=== PATIENT | female | born 1930 | race Caucasian/White ===

== ENCOUNTER 2016-10-18 16:43 | Inpatient (IN) | payer MEDICARE, BC ==
[~2016-10-18] VITALS: Ht 165.1 cm; Wt 69.6 kg
[~2016-10-18 16:43] MED LIST changes: -METO-429 PO; -[UNRECOGNIZED DRUG - CODE] PO
[2016-10-18] MEDS ORDERED: MAGNESIUM HYDROXIDE 30ML CUP PO PRN (17:00)
[2016-10-18] MEDS ORDERED: SENNA/DOCUSATE NA (8.6MG/50MG) TAB PO PRN ×2 (17:00→19:00)
[2016-10-18] MEDS ORDERED: ZOLPIDEM 5 MG TAB PO PRN ×2 (17:00→19:00)
[2016-10-18] MEDS ORDERED: DIPHENHYDRAMINE 50 MG INJ IM PRN (17:00)
[2016-10-18] MEDS ORDERED: BISACODYL 10 MG SUPP PR PRN (17:00)
--- NOTE | 2016-10-18 17:18 | HP ---
Date/Time of Note Date/Time of Note DATE: 10/18/16 TIME: 17:04 Assessment/Plan VTE Prophylaxis VTE Prophylaxis Intervention: ambulation, other (Aspirin 81 mg) Assessment/Plan Assessment/Plan * Inpatient orders placed * Inpatient PT recommended * Patient will be followed up by internal medicine/Dr. Connelly * Will continue to monitor patient. HPI/ROS Admit Date/Time Admit Date/Time 10/18/2016 Hx of Present Illness 86-year-old female direct admit to the hospital on 10/18/2016 status post traumatic fall yesterday. Dr. Mathews was notified overnight regarding traumatic fall, and instructions to present to the emergency room were given to the patient. Patient did not show up to emergency room. Dr. Ahumada was notified as well. Patient showed up in outpatient clinic today. X-rays were performed of the hip and knee which were negative for obvious fracture. Patient is a mobile with intractable pain to the right hip and knee as well as lower extremity. Denies any altered mental state. Denies any chest pain/ tightness. Continues with ongoing severe pain to the right hip and knee. Consult between Dr. Mathews and Dr. Connelly was had and it was agreed that patient needs to be admitted into the hospital for ongoing inpatient care with likelihood of discharge to halfway facility. Patient currently lives alone with no assistance. PMH/Family/Social Past Medical History Please refer to patient chart for past medical history and surgical history. Exam/Review of Systems Vital Signs Vitals Blood pressure on exam was 127/56, temperature is 98.8, pulse was 88, respiratory rate was 12, height was 5 foot 5 inches, weight is 150 pounds Exam Exam Tenderness to palpation to the right hip and knee. Unable to weight-bear independently. Patient remains seated in wheelchair. With passive range of motion she has discomfort with flexion of the hip and knee. Denies any pain to the calf. Negative Homans sign. Normal sensory examination to light touch. 4- /5 weakness to the right hip and knee Constitutional: alert, oriented GAGAN FERNANDEZ PA-C Oct 18, 2016 17:15
[2016-10-18 18:04] VITALS: BP 142/63; PULSE 79; RESP 16
[2016-10-18 18:22] VITALS: Ht 165.1 cm; Wt 69.6 kg
[2016-10-18] MEDS ORDERED: ONDANSETRON 4 MG INJ IV PRN (19:00)
[2016-10-18] MEDS ORDERED: HYDROmorphONE 1 MG/ML SYG IV PRN (19:00)
[2016-10-18] MEDS ORDERED: OXYCODONE/ACETAMINOPHEN (5/325) TAB PO PRN (19:00)
[2016-10-18] MEDS ORDERED: [UNRECOGNIZED DRUG - CODE] PO (19:25)
[2016-10-18] MEDS ORDERED: OMEP20CA16 PO (19:28)
[2016-10-18] MEDS ORDERED: DEXTROSE 5%-0.9% NACL 1,000 ML IV SCH (20:00)
[2016-10-18 20:15] VITALS: BP 145/65; RESP 18
[2016-10-18] MEDS: NAPROXEN 250 MG TAB PO SCH (20:42)
[2016-10-18] MEDS: ATORVASTATIN 20 MG TAB PO SCH (20:42)
[2016-10-18] MEDS ORDERED: NACL 0.9% 3 ML SYG IV SCH (21:00)
[2016-10-19 02:18] VITALS: BP 159/71; RESP 17
[2016-10-19 03:14] VITALS: BP 132/62; PULSE 88; RESP 18
[2016-10-19] MEDS: PANTOPRAZOLE (EC) 40 MG TAB PO SCH (05:32)
[2016-10-19 06:21] LABS: ADD SCAN DIFF NO
[2016-10-19 06:57] LABS: CALCIUM 9.1 mg/dl (8.4-10.2); CREATININE 1.05 mg/dl (0.44-1.00); POTASSIUM 3.7 mmol/L (3.5-5.1)
[2016-10-19 07:03] LABS: ABNORMAL IP MESSAGE 1; BASOPHIL # 0.2 10^3/ul (0.0-0.1); EOSINOPHILS # 0.6 10^3/ul (0.0-0.5); EOSINOPHILS % 3.9 % (0.0-7.0); HEMATOCRIT 28.5 % (37.0-47.0); HEMOGLOBIN 8.7 g/dl (12.0-16.0); LYMPHOCYTES # 2.2 10^3/ul (0.8-2.9); LYMPHOCYTES % 14.4 % (15.0-51.0); MEAN CORPUSCULAR HEMOGLOBIN 21.4 pg (29.0-33.0); MEAN CORPUSCULAR HGB CONC 30.5 g/dl (32.0-37.0); MEAN PLATELET VOLUME 10.9 fl (7.4-10.4); MONOCYTE # 1.6 10^3/ul (0.3-0.9); MONOCYTES % 10.3 % (0.0-11.0); NEUTROPHIL # 10.9 10^3/ul (1.6-7.5); NEUTROPHILS % 69.9 % (39.0-77.0); PLATELET COUNT 489 10^3/UL (140-415); RED BLOOD COUNT 4.07 10^6/ul (4.20-5.40); RED CELL DISTRIBUTION WIDTH 22.1 % (11.5-14.5); WHITE BLOOD COUNT 15.5 10^3/ul (4.8-10.8)
[2016-10-19 07:40] VITALS: BP 146/76; RESP 18
--- NOTE | 2016-10-19 07:57 | PN ---
Date/Time of Note Date/Time of Note DATE: 10/19/16 TIME: 07:52 Assessment/Plan VTE Prophylaxis VTE Prophylaxis Intervention: ambulation, other (Aspirin 81 mg) Lines/Catheters IV Catheter Type (from Nrs): Saline Lock Assessment/Plan Assessment/Plan * Continued monitoring by internal medicine * CT scan with metal suppression to the right knee ordered for later today as Dr. Mathews feels that there may be loose component in regards to tibial component status post total knee arthroplasty after fall. * Pain medication as needed * [facility] is cleared by orthopedics and internal medicine. Subjective 24 Hr Interval Summary Free Text/Dictation 86-year-old female who was admitted yesterday (10/18/2016) after experiencing fall injuring the right hip and right knee. She is status post right total hip and right total knee arthroplasty. Continues with ongoing pain. Unable to weight-bear independently. Since being admitted yesterday, she states that pain has been minimal while she has been at rest. Denies any issues since being admitted. Constitutional: no complaints Exam/Review of Systems Vital Signs Vitals Vital Signs Date Time Temp Pulse Resp B/P Pulse Ox O2 Delivery O2 Flow Rate FiO2 10/19/16 03:14 88 18 132/62 98 Room Air 10/19/16 02:18 97.5 Intake and Output 10/18/16 10/18/16 10/19/16 15:00 23:00 07:00 Intake Total 360 ml Balance 360 ml Exam * Bruising to the middle third of the lateral thigh on the right side. * Limited range of motion to the hip and knee on exam today. No significant discomfort on exam. * Normal sensory examination to light touch. * Leg remains elevated being supported by pillows which helps with pain relief. * 2+ pedal pulses. Results Result Diagram: 10/19/16 0609 10/19/16 0609 Results 24 hrs Laboratory Tests Test 10/19/16 06:09 White Blood Count 15.5 H Red Blood Count 4.07 #L Hemoglobin 8.7 L Hematocrit 28.5 L Mean Corpuscular Volume 70.0 L Mean Corpuscular Hemoglobin 21.4 L Mean Corpuscular Hemoglobin Concent 30.5 L Red Cell Distribution Width 22.1 #H Platelet Count 489 H Mean Platelet Volume 10.9 #H Neutrophils % 69.9 Lymphocytes % 14.4 L Monocytes % 10.3 Eosinophils % 3.9 Basophils % 1.0 Neutrophils # 10.9 H Lymphocytes # 2.2 Monocytes # 1.6 H Eosinophils # 0.6 H Basophils # 0.2 H Nucleated Red Blood Cells # 0.0 Sodium Level 136 Potassium Level 3.7 Chloride Level 94 L Carbon Dioxide Level 30 Anion Gap 16 Blood Urea Nitrogen 23 H Creatinine 1.05 H Glucose Level 95 Calcium Level 9.1 Medications Medications Current Medications Zolpidem Tartrate (Ambien) 5 mg HS PRN PO INSOMNIA; Start 10/18/16 at 17:00 Ondansetron HCl (Zofran Inj) 4 mg Q4H PRN IV NAUSEA AND/OR VOMITING; Start at 17:00 Simethicone (Mylicon) 80 mg TID PRN PO DISTENSION/GAS/BLOATING; Start 10/18/16 at 17:00 Senna/Docusate Sodium (Senokot-S) 2 tab BID PRN PO CONSTIPATION; Start at 17:00 Magnesium Hydroxide (Milk Of Mag) 30 ml HS PRN PO CONSTIPATION; Start 10/18/16 at 17:00 Bisacodyl (Dulcolax Supp) 10 mg DAILY PRN [place] CONSTIPATION; Start 10/18/16 at 17 :00 Diphenhydramine HCl (Benadryl) 25 mg Q4H PRN IM ITCHING OR RASH; Start at 17:00 Amlodipine Besylate (Norvasc) 5 mg DAILY PO ; Start 10/19/16 at 09:00 Aspirin (Aspirin) 81 mg DAILY PO ; Start 10/19/16 at 09:00 Atorvastatin Calcium (Lipitor) 20 mg QHS PO Last administered on 10/18/16t 20: 42; Admin Dose 20 MG; Start 10/18/16 at 21:00 Furosemide (Lasix) 20 mg DAILY PO ; Start 10/19/16 at 09:00 Raloxifene HCl (Evista) 60 mg DAILY PO ; Start 10/19/16 at 09:00 Senna/Docusate Sodium (Senokot-S) 2 tab BID PRN PO CONSTIPATION; Start at 19:00 Spironolactone (Aldactone) 25 mg DAILY PO ; Start 10/19/16 at 09:00 Zolpidem Tartrate (Ambien) 5 mg HS PRN PO INSOMNIA; Start 10/18/16 at 19:00 Pantoprazole (Protonix Tab) 40 mg DAILY@06 PO Last administered on 10/19/16 05 :32; Admin Dose 40 MG; Start 10/19/16 at 06:00 Oxycodone/ Acetaminophen (Percocet (5/ 325)) 1 tab Q4H PRN PO PAIN; Start 10/18 at 19:00 Hydromorphone HCl (Dilaudid) 0.5 mg Q4H PRN IV BREAKTHROUGH PAIN; Start at 19:00 Ondansetron HCl (Zofran Inj) 4 mg Q4H PRN IV NAUSEA AND/OR VOMITING; Start at 19:00 Naproxen (Naprosyn) 250 mg BID PO Last administered on 10/18/16 20:42; Admin Dose 250 MG; Start 10/18/16 at 21:00 GAGAN FERNANDEZ PA-C Oct 19, 2016 07:56
[2016-10-19] MEDS ORDERED: SPIRONOLACTONE 25 MG TAB PO SCH (09:00)
[2016-10-19] MEDS ORDERED: RALOXIFENE 60 MG TAB PO SCH (09:00)
[2016-10-19] MEDS: AMLODIPINE 5 MG TAB PO SCH (09:06)
[2016-10-19] MEDS: ASPIRIN 81 MG TAB PO SCH (09:07)
[2016-10-19] MEDS: NAPROXEN 250 MG TAB PO SCH ×2 (09:07→20:38)
[2016-10-19] MEDS: FUROSEMIDE 20 MG TAB PO SCH (09:07)
[2016-10-19] MEDS ORDERED: METO-429 PO (09:20)
--- NOTE | 2016-10-19 09:55 | PDOCDIS ---
Discharge Instructions DIAGNOSIS Discharge Diagnosis Status post fall with right hip and knee soft tissue injury. CONDITION Patient Condition: Stable HOME CARE INSTRUCTIONS: Diet Instructions: RegularSpecial Diet: regular ACTIVITY: Activity Restrictions: Slowly Increase Activity Rest between Activity Avoid heavy lifting No Sexual Activity Do not Drive Do not operate Machinery Do not operate Power Tool Avoid Heavy Housework Keep Limb Elevated (While at rest and use ice modalities.) Weight Bearing (Weightbearing as tolerated. May use front wheeled walker.) Bathing Restrictions: Shower FOLLOW UP/APPOINTMENTS Follow-up Plan Follow-up in outpatient office within the first 1-2 weeks from discharge for repeat evaluation GAGAN FERNANDEZ PA-C Oct 19, 2016 09:54
[2016-10-19 10:15] VITALS: BP 149/71; RESP 18
[2016-10-19 14:25] VITALS: BP 134/62; RESP 16
--- NOTE | 2016-10-19 16:19 | PN ---
Date/Time of Note Date/Time of Note DATE: 10/19/16 TIME: 16:12 Assessment/Plan VTE Prophylaxis VTE Prophylaxis Intervention: contraindicated VTE Contraindication Reason: bleeding (rt thigh, has scds) Lines/Catheters IV Catheter Type (from Nrsg): Saline Lock Subjective 24 Hr Interval Summary Free Text/Dictation rt leg pain and weakness following a fall at home 7 plus days ago. has a huge thigh hematoma but fortunately no fracture seen. unable to amb independently, lives alone. for aru evaluation will transfer if accepted, otherwise e[facility] placement---[facility]-- anemia secondary to hematoma, background history primary thrombocytosis, hgb is 8.7 will follow and try to avoid transfusion hypertension under control osteoporosis has received prolia rx in past, no need for serm other issues hyperlipidemia, prior femoral fracture all stable alert lungs clear, heart rate regular abd soft right leg with large palp hematoma ant thigh, mult bruises, healing small lac over rt eye Musculoskeletal: bone/joint pain Exam/Review of Systems Vital Signs Vitals Vital Signs Date Time Temp Pulse Resp B/P Pulse Ox O2 Delivery O2 Flow Rate FiO2 10/19/16 14:25 98.1 79 16 134/62 95 10/19/16 03:14 Room Air Intake and Output 10/18/16 10/18/16 10/19/16 14:59 22:59 06:59 Intake Total 360 ml Balance 360 ml Results Result Diagram: 10/19/16 0609 10/19/16 0609 Results 24 hrs Laboratory Tests Test 10/19/16 06:09 White Blood Count 15.5 H Red Blood Count 4.07 #L Hemoglobin 8.7 L Hematocrit 28.5 L Mean Corpuscular Volume 70.0 L Mean Corpuscular Hemoglobin 21.4 L Mean Corpuscular Hemoglobin Concent 30.5 L Red Cell Distribution Width 22.1 #H Platelet Count 489 H Mean Platelet Volume 10.9 #H Neutrophils % 69.9 Lymphocytes % 14.4 L Monocytes % 10.3 Eosinophils % 3.9 Basophils % 1.0 Neutrophils # 10.9 H Lymphocytes # 2.2 Monocytes # 1.6 H Eosinophils # 0.6 H Basophils # 0.2 H Nucleated Red Blood Cells # 0.0 Sodium Level 136 Potassium Level 3.7 Chloride Level 94 L Carbon Dioxide Level 30 Anion Gap 16 Blood Urea Nitrogen 23 H Creatinine 1.05 H Glucose Level 95 Calcium Level 9.1 Medications Medications Current Medications Zolpidem Tartrate (Ambien) 5 mg HS PRN PO INSOMNIA; Start 10/18/16 at 17:00 Ondansetron HCl (Zofran Inj) 4 mg Q4H PRN IV NAUSEA AND/OR VOMITING; Start at 17:00 Simethicone (Mylicon) 80 mg TID PRN PO DISTENSION/GAS/BLOATING; Start 10/18/16 at 17:00 Senna/Docusate Sodium (Senokot-S) 2 tab BID PRN PO CONSTIPATION; Start at 17:00 Magnesium Hydroxide (Milk Of Mag) 30 ml HS PRN PO CONSTIPATION; Start 10/18/16 at 17:00 Bisacodyl (Dulcolax Supp) 10 mg DAILY PRN [place] CONSTIPATION; Start 10/18/16 at 17 :00 Diphenhydramine HCl (Benadryl) 25 mg Q4H PRN IM ITCHING OR RASH; Start at 17:00 Amlodipine Besylate (Norvasc) 5 mg DAILY PO Last administered on 10/19/16 09: 06; Admin Dose 5 MG; Start 10/19/16 at 09:00 Aspirin (Aspirin) 81 mg DAILY PO Last administered on 10/19/16 09:07; Admin Dose 81 MG; Start 10/19/16 at 09:00 Atorvastatin Calcium (Lipitor) 20 mg QHS PO Last administered on 10/18/16 20: 42; Admin Dose 20 MG; Start 10/18/16 at 21:00 Furosemide (Lasix) 20 mg DAILY PO Last administered on 10/19/16 09:07; Admin Dose 20 MG; Start 10/19/16 at 09:00 Senna/Docusate Sodium (Senokot-S) 2 tab BID PRN PO CONSTIPATION; Start at 19:00 Zolpidem Tartrate (Ambien) 5 mg HS PRN PO INSOMNIA; Start 10/18/16 at 19:00 Pantoprazole (Protonix Tab) 40 mg DAILY@06 PO Last administered on 10/19/16 05 :32; Admin Dose 40 MG; Start 10/19/16 at 06:00 Oxycodone/ Acetaminophen (Percocet (5/ 325)) 1 tab Q4H PRN PO PAIN; Start 10/18 at 19:00 Hydromorphone HCl (Dilaudid) 0.5 mg Q4H PRN IV BREAKTHROUGH PAIN; Start at 19:00 Ondansetron HCl (Zofran Inj) 4 mg Q4H PRN IV NAUSEA AND/OR VOMITING; Start at 19:00 Naproxen (Naprosyn) 250 mg BID PO Last administered on 10/19/16t 09:07; Admin Dose 250 MG; Start 10/18/16 at 21:00 Spironolactone (Aldactone) 25 mg QHS PO ; Start 10/19/16 at 21:00 Metoprolol Succinate (Toprol Xl) 100 mg DAILY PO ; Start 10/20/16 at 09:00 Miscellaneous Information Patients own medicat... BID@ XX ; Start 10/19/16 at 16:00 SINTIA TOBIN MD Oct 19, 2016 16:19
[2016-10-19] MEDS ORDERED: ONDANSETRON 4 MG INJ IV PRN (17:00)
[2016-10-19 20:00] VITALS: BP 153/71; RESP 20
[2016-10-19] MEDS: SPIRONOLACTONE 25 MG TAB PO SCH (20:38)
[2016-10-19] MEDS: ATORVASTATIN 20 MG TAB PO SCH (20:38)
--- NOTE | 2016-10-20 04:17 | RADRPT ---
PROCEDURE: Noncontrast CT examination of the right lower extremity. CLINICAL INDICATION: Right knee pain and right knee arthroplasty, with suspected loose tibial tray TECHNIQUE: Noncontrast CT examination was obtained of the right lower extremity, with attention to the right knee. Axial, sagittal and coronal reformatted images are available for interpretation. CTDI: 54.47 and DLP: 1820.76. COMPARISON: CT examination of the right knee dated 07/05/2015. FINDINGS: Right knee arthroplasty with patellar resurfacing is again seen. There is no CT evidence of tibial tray loosening, given somewhat limited evaluation secondary to metallic artifact. Anatomic alignment of the tibial tray is similar in appearance to prior examination dated 07/05/2015. A nuclear medici ne bone scan may be of further use. Since the last examination there is evident healing at the fracture of the distal femoral metaphysis , with new retrograde intramedullary kathi fixation in the partially visualized distal femur. There is no evident hardware complication. There is no acute fracture or dislocation. There is a new heterogeneous region of hemorrhage versus mass likely within the lateral distal rectu s femoris, measuring 11 cm in the craniocaudad plane (extending off the superior margin of the image s) and 48 x 33 mm in the axial plane. Differential considerations include hemorrhage secondary to a new soft tissue injury since examination dated 07/05/2015. If there is concern for a soft tissue neoplasm recommend IV contrast enhanced MRI examination for fu rther evaluation. 12 mm likely abscess in the lateral soft tissues of the distal left thigh at the level of interferen ce screw placement, presumably post surgical. This is new over the interval There increased changes of fatty atrophy in the musculature of the distal left fine comparison is ma de to examination dated 07/05/2015. IMPRESSION: 1. No evident loosening of the tibial tray, given limited sensitivity of this examination secondary to metallic artifact. 2. Nevertheless, there is no evident change in anatomic alignment at the tibial tray when compariso n is made to the examination dated 07/05/2015. 3. If there is strong persistent concern for tibial tray loosening A nuclear medicine bone scan may be of further use. 4. Right knee arthroplasty with patellar resurfacing and retrograde IM kathi fixator in the distal ri ght femur are without evident hardware complication. 5. New large hemorrhagic collection in the lateral aspect of the distal right thigh, perhaps in the rectus femoris. 6. If there is concern for neoplasm recommend IV contrast enhanced MRI for further evaluation. 7. New 12 mm likely abscess in the lateral soft tissues of the distal right thigh at the level of i nterference screw placement, presumably postsurgical RPTAT: [facility] Physician Efraín Date Time Electronically viewed and signed by Physician Efraní on 10/20/2016 04:16 RS/
[2016-10-20 04:20] VITALS: BP 139/77; RESP 18
[2016-10-20 05:55] LABS: ABNORMAL IP MESSAGE 1; BASOPHIL # 0.2 10^3/ul (0.0-0.1); BASOPHILS % 1.4 % (0.0-2.0); EOSINOPHILS # 0.5 10^3/ul (0.0-0.5); EOSINOPHILS % 3.3 % (0.0-7.0); HEMATOCRIT 31.2 % (37.0-47.0); HEMOGLOBIN 9.4 g/dl (12.0-16.0); LYMPHOCYTES # 2.3 10^3/ul (0.8-2.9); LYMPHOCYTES % 15.3 % (15.0-51.0); MEAN CORPUSCULAR HEMOGLOBIN 21.4 pg (29.0-33.0); MEAN CORPUSCULAR HGB CONC 30.1 g/dl (32.0-37.0); MEAN CORPUSCULAR VOLUME 71.1 fl (82.0-101.0); MEAN PLATELET VOLUME 11.2 fl (7.4-10.4); MONOCYTE # 1.4 10^3/ul (0.3-0.9); MONOCYTES % 9.3 % (0.0-11.0); NEUTROPHIL # 10.7 10^3/ul (1.6-7.5); PLATELET COUNT 507 10^3/UL (140-415); RED BLOOD COUNT 4.39 10^6/ul (4.20-5.40); RED CELL DISTRIBUTION WIDTH 22.7 % (11.5-14.5); WHITE BLOOD COUNT 15.3 10^3/ul (4.8-10.8)
[2016-10-20 06:33] LABS: POSITIVE DIFF @See below
[2016-10-20 06:36] LABS: CALCIUM 9.5 mg/dl (8.4-10.2); CREATININE 0.9 mg/dl (0.44-1.00); POTASSIUM 3.9 mmol/L (3.5-5.1)
[2016-10-20] MEDS: PANTOPRAZOLE (EC) 40 MG TAB PO SCH (06:45)
[2016-10-20 07:45] VITALS: BP 137/75; RESP 16
[2016-10-20] MEDS: NAPROXEN 250 MG TAB PO SCH ×2 (08:18→20:35)
[2016-10-20] MEDS: ASPIRIN 81 MG TAB PO SCH (08:19)
[2016-10-20] MEDS: AMLODIPINE 5 MG TAB PO SCH (08:19)
[2016-10-20] MEDS: METOPROLOL (XL) 100 MG TAB PO SCH (08:20)
[2016-10-20] MEDS: FUROSEMIDE 20 MG TAB PO SCH (08:21)
--- NOTE | 2016-10-20 10:06 | HP ---
DATE OF ADMISSION: 10/18/2016 CHIEF COMPLAINT: Severe right leg pain and immobility. HISTORY OF PRESENT ILLNESS: This 86-year-old woman is followed by me for hypertension, osteoporosis, essential thrombocytosis. The patient suffered a femoral fracture in about May or May of 2012. Required residential ECF stay after it was rodded. Has done fairly well at home. She does live by herself. She fell about a week or 10 days ago, suffering pain in her right leg. She was unable to really bear weight or walk on it. She did not want to come into the emergency or the hospital. Ultimately went to see . X-rays in the office were unremarkable, but she was clearly immobile and had a big hematoma on her right thigh. The patient was admitted to the hospital last p.m. Her hemoglobin is 8.7. Platelet count is in the 400,000 range. Otherwise she offers no particular complaints. PAST MEDICAL HISTORY: Patient had a TIA many years ago, hypertension, osteoporosis, hyperlipidemia, gastrointestinal reflux disease, history of headaches, as well as total hip and total knee replacements on the right, as well as a right femoral fracture kathi. She has had a hysterectomy, ectopic , and tonsillectomy. ALLERGIES: THERE ARE NO ALLERGIES. FAMILY HISTORY: Parents are . She is 1 of sib-ship of 5. She is a , 1 son living and well. Nonsmoker, no alcohol. Retired nurse. REVIEW OF SYSTEMS: HEENT: Not complaining of headaches or eye problems. Does wear glasses. She had a small laceration over the right eye, which she put a Bandaid over, and it is not bothering her. She has somewhat poor hearing. CARDIOPULMONARY: Says she is not short of breath or having chest pain currently. GASTROINTESTINAL: Asymptomatic. GENITOURINARY: She is continent, needs a bedpan. MEDICATIONS: 1. Patient in the past has been on Evista. It is not clear if she still is. 2. She has received Prolea for osteoporosis. 3. Aldactazide. 4. Toprol. 5. Lasix. 6. Lipitor. 7. She has taken Arthrotec for pain. PHYSICAL EXAMINATION: VITAL SIGNS: Blood pressure is 130/60, 36 hours. All are all in the 90s. She is afebrile. Heart rates are in the 70s and regular. GENERAL: This is a very pleasant, alert 86-year-old. Somewhat overweight, lying in bed. HEENT: Pupils are round and reactive. Extraocular muscles are intact. A small laceration lateral to the left eye is healing, related to her fall. Mouth is unremarkable. NECK: Supple. No bruits. CHEST: Clear. Heart tones regular. No breast mass appreciated lying flat in bed. ABDOMEN: Obese. EXTREMITIES: No clubbing, cyanosis, or edema. Good peripheral pulses. She has degenerative changes of the hands. The right thigh is markedly bruised, as is the leg. There is a large, hand- size hematoma overlying the anterior thigh, slightly tender. She can raise her leg in the lying position. NEUROLOGIC: Neurologically intact. INITIAL IMPRESSION: 1. Fall with large hematoma, right lower extremity, with poor mobility. No evidence of further fracture. 2. Hypertension. 3. Essential thrombocytosis. 4. Anemia, acute, secondary to intramuscular bleeding. 5. Osteoporosis. 6. Multiple orthopedic procedures including right hip, right knee, and right femoral surgeries. DISCUSSION: At this point the patient is stable. Conservative care, physical therapy, and occupational therapy have been ordered. ARU consultation has been ordered. Failing that, acute care facility (ACF), possibly [facility], should be entertained as she is really not safe at this point to be at home by herself. Dictated By: Manuel Phillips MD /juan/nick /Document#: [id number]
--- NOTE | 2016-10-20 10:34 | PN ---
Date/Time of Note Date/Time of Note DATE: 10/20/16 TIME: 10:32 Assessment/Plan Lines/Catheters IV Catheter Type (from Nrsg): Saline Lock Assessment/Plan Assessment/Plan Stable -pain meds as needed -OOB with PT using FWW as tolerated -internal medicine to continue to monitor -discharge planning -stable for transfer to ARU or SNF from an ortho standpoint Subjective 24 Hr Interval Summary No acute overnight events. VSS. Ambulation is progressing. CT showed no evidence of subtle fracture or hardware loosening. Exam/Review of Systems Vital Signs Vitals Vital Signs Date Time Temp Pulse Resp B/P Pulse Ox O2 Delivery O2 Flow Rate FiO2 10/20/16 04:20 97.5 77 18 139/77 95 10/19/16 03:14 Room Air Intake and Output 10/19/16 10/19/16 10/20/16 15:00 23:00 07:00 Intake Total 1000 ml 560 ml Balance 1000 ml 560 ml Exam Free Text/Dictation Thigh soft 4/5 Quadriceps, Tibialis Anterior, EHL, Gastroc, Soleus, Peroneals Normal sensation Palpable DT/PT, CR <2 sec No distal amanda Results Result Diagram: 10/20/16 0504 10/20/16 0504 ASHLEY JACKSON PA-C Oct 20, 2016 10:34
[2016-10-20 14:06] VITALS: BP 138/63; RESP 18
--- NOTE | 2016-10-20 16:58 | CONS ---
Date/Time of Note Date/Time of Note DATE: 10/20/16 TIME: 16:53 Assessment/Plan Assessment/Plan Problems: (1) Intramuscular hematoma Status: Acute (2) Lower extremity pain, right Status: Acute (3) Hypertension Status: Chronic Comment: Fair control Qualifiers: Hypertension type: essential hypertension Qualified Code: I10 - Essential hypertension Additional Assessment/Plan Clinically stable. Plan for transfer to ARU/SNF Consultation Date/Type/Reason Admit Date/Time Oct 18, 2016 at 17:17 Initial Consult Date Type of Consultation: Internal medicine Referring Provider: TASIA SARKAR MD 24 HR Interval Summary Free Text/Dictation Pain denies pain and rest. Pain with ambulation. Constitutional: no complaints Exam/Review of Systems Vital Signs Vitals Vital Signs Date Time Temp Pulse Resp B/P Pulse Ox O2 Delivery O2 Flow Rate FiO2 10/20/16 14:06 98.4 68 18 138/63 98 10/19/16 03:14 Room Air Intake and Output 10/19/16 10/19/16 10/20/16 15:00 23:00 07:00 Intake Total 1000 ml 560 ml Balance 1000 ml 560 ml Exam Constitutional: alert, oriented, well developed Psych: no complaints Head: normocephalic Eyes: EOMI, PERRL, nl conjunctiva Neck: supple Respiratory: clear to auscultation Cardiovascular: regular rate and rhythm Gastrointestinal: soft Musculoskeletal: other (large hematoma on right lower extremity) Extremities: normal pulses Results Labs and vitals reviewed Result Diagram: 10/20/16 0504 10/20/16 0504 Results 24 hrs Laboratory Tests Test 10/20/16 05:04 White Blood Count 15.3 H Red Blood Count 4.39 Hemoglobin 9.4 L Hematocrit 31.2 L Mean Corpuscular Volume 71.1 L Mean Corpuscular Hemoglobin 21.4 L Mean Corpuscular Hemoglobin Concent 30.1 L Red Cell Distribution Width 22.7 H Platelet Count 507 H Mean Platelet Volume 11.2 H Neutrophils % 70.0 Lymphocytes % 15.3 Monocytes % 9.3 Eosinophils % 3.3 Basophils % 1.4 Nucleated Red Blood Cells % 0.0 Neutrophils # 10.7 H Lymphocytes # 2.3 Monocytes # 1.4 H Eosinophils # 0.5 Basophils # 0.2 H Nucleated Red Blood Cells # 0.0 Sodium Level 138 Potassium Level 3.9 Chloride Level 92 L Carbon Dioxide Level 31 Anion Gap 19 H Blood Urea Nitrogen 19 Creatinine 0.90 Glucose Level 98 Calcium Level 9.5 Medications Medications Current Medications Zolpidem Tartrate (Ambien) 5 mg HS PRN PO INSOMNIA; Start 10/18/16 at 17:00 Ondansetron HCl (Zofran Inj) 4 mg Q4H PRN IV NAUSEA AND/OR VOMITING; Start at 17:00 Simethicone (Mylicon) 80 mg TID PRN PO DISTENSION/GAS/BLOATING; Start 10/18/16 at 17:00 Senna/Docusate Sodium (Senokot-S) 2 tab BID PRN PO CONSTIPATION; Start at 17:00 Magnesium Hydroxide (Milk Of Mag) 30 ml HS PRN PO CONSTIPATION; Start 10/18/16 at 17:00 Bisacodyl (Dulcolax Supp) 10 mg DAILY PRN [place] CONSTIPATION; Start 10/18/16 at 17 :00 Diphenhydramine HCl (Benadryl) 25 mg Q4H PRN IM ITCHING OR RASH; Start at 17:00 Amlodipine Besylate (Norvasc) 5 mg DAILY PO Last administered on 10/20/16 08: 19; Admin Dose 5 MG; Start 10/19/16 at 09:00 Aspirin (Aspirin) 81 mg DAILY PO Last administered on 10/20/16 08:19; Admin Dose 81 MG; Start 10/19/16 at 09:00 Atorvastatin Calcium (Lipitor) 20 mg QHS PO Last administered on 10/19/16 20: 38; Admin Dose 20 MG; Start 10/18/16 at 21:00 Furosemide (Lasix) 20 mg DAILY PO Last administered on 10/20/16 08:21; Admin Dose 20 MG; Start 10/19/16 at 09:00 Senna/Docusate Sodium (Senokot-S) 2 tab BID PRN PO CONSTIPATION; Start at 19:00 Zolpidem Tartrate (Ambien) 5 mg HS PRN PO INSOMNIA; Start 10/18/16 at 19:00 Pantoprazole (Protonix Tab) 40 mg DAILY@06 PO Last administered on 10/20/16 06 :45; Admin Dose 40 MG; Start 10/19/16 at 06:00 Oxycodone/ Acetaminophen (Percocet (5/ 325)) 1 tab Q4H PRN PO PAIN; Start 10/18 at 19:00 Hydromorphone HCl (Dilaudid) 0.5 mg Q4H PRN IV BREAKTHROUGH PAIN; Start at 19:00 Ondansetron HCl (Zofran Inj) 4 mg Q4H PRN IV NAUSEA AND/OR VOMITING; Start at 19:00 Naproxen (Naprosyn) 250 mg BID PO Last administered on 10/20/16 08:18; Admin Dose 250 MG; Start 10/18/16 at 21:00 Spironolactone (Aldactone) 25 mg QHS PO Last administered on 10/19/16 20:38; Admin Dose 25 MG; Start 10/19/16 at 21:00 Metoprolol Succinate (Toprol Xl) 100 mg DAILY PO Last administered on 08:20; Admin Dose 100 MG; Start 10/20/16 at 09:00 Miscellaneous Information Patients own medicat... BID@ XX ; Start 10/19/16 at 16:00 SONI RODRIGUEZ MD Oct 20, 2016 16:58
[2016-10-20 20:00] VITALS: BP 141/62; RESP 19
[2016-10-20] MEDS: ATORVASTATIN 20 MG TAB PO SCH (20:35)
[2016-10-20] MEDS: SPIRONOLACTONE 25 MG TAB PO SCH (20:35)
[2016-10-21 02:00] VITALS: BP 127/60; RESP 19
[2016-10-21] MEDS: PANTOPRAZOLE (EC) 40 MG TAB PO SCH (06:10)
[2016-10-21] MEDS: NAPROXEN 250 MG TAB PO SCH (08:51)
[2016-10-21] MEDS: ASPIRIN 81 MG TAB PO SCH (08:51)
[2016-10-21] MEDS: FUROSEMIDE 20 MG TAB PO SCH (08:53)
[2016-10-21] MEDS: AMLODIPINE 5 MG TAB PO SCH (08:53)
[2016-10-21] MEDS: METOPROLOL (XL) 100 MG TAB PO SCH (08:53)
[2016-10-21 09:05] VITALS: BP 134/62; RESP 18
[2016-10-21 10:08] LABS: ABNORMAL IP MESSAGE 1; BASOPHIL # 0.1 10^3/ul (0.0-0.1); BASOPHILS % 1.1 % (0.0-2.0); EOSINOPHILS # 0.5 10^3/ul (0.0-0.5); HEMATOCRIT 31.7 % (37.0-47.0); HEMOGLOBIN 9.6 g/dl (12.0-16.0); LYMPHOCYTES # 1.6 10^3/ul (0.8-2.9); LYMPHOCYTES % 12.2 % (15.0-51.0); MEAN CORPUSCULAR HEMOGLOBIN 21.8 pg (29.0-33.0); MEAN CORPUSCULAR HGB CONC 30.3 g/dl (32.0-37.0); MEAN PLATELET VOLUME 10.5 fl (7.4-10.4); MONOCYTE # 1.2 10^3/ul (0.3-0.9); MONOCYTES % 9.3 % (0.0-11.0); NEUTROPHIL # 9.4 10^3/ul (1.6-7.5); NEUTROPHILS % 72.7 % (39.0-77.0); PLATELET COUNT 528 10^3/UL (140-415); RED CELL DISTRIBUTION WIDTH 22.7 % (11.5-14.5); WHITE BLOOD COUNT 12.9 10^3/ul (4.8-10.8)
[2016-10-21 10:15] LABS: CALCIUM 9.3 mg/dl (8.4-10.2); CREATININE 0.93 mg/dl (0.44-1.00); POTASSIUM 4.1 mmol/L (3.5-5.1)
[2016-10-21 10:18] LABS: POSITIVE DIFF @See below
[2016-10-21 14:08] VITALS: BP 142/69; PULSE 73; RESP 18
--- NOTE | 2016-10-22 10:01 | DS ---
Date/Time of Note Date/Time of Note DATE: 10/22/16 TIME: 09:58 Discharge Summary Admission/Discharge Info Admit Date/Time Oct 18, 2016 at 17:17 Discharge Date/Time Oct 21, 2016 at 14:17 Discharge Diagnosis Status post fall with right hip and knee soft tissue injury. Patient Condition: Stable Hospital Course 86-year-old female whom was a direct admit to the hospital on 10/18/2016 after traumatic fall. X-rays were performed showing no fracture or complications status post right total hip and right total knee arthroplasty. Patient did suffer bruising to the lateral thigh of the right lower extremity. Patient was further evaluated by CT scan to rule out loosening of tibial component status post total knee replacement. CT scan was negative. Patient continued to improve but had intractable pain and difficulty weightbearing. While as an inpatient, patient had improved pain and functionality. Patient will be transferred to acute rehab facility for further care and monitoring. Patient will follow-up in office in the next 1-2 weeks. Home Meds Active Scripts Amlodipine Besylate* (Norvasc*) 5 Mg Tab, 5 MG PO DAILY for 30 Days, TAB Prov:ROMEL OMER MD 07/11/15 Sennosides/Docusate Sodium (Senna-Time S Tablet) 1 Tab Tab, 2 TAB PO BID Y for CONSTIPATION, #30 TAB Prov:ROMEL OMER MD 07/11/15 Zolpidem Tartrate (Ambien Bo) 5 Mg Tab, 5 MG PO HS Y for INSOMNIA for 30 Days, TAB Prov:ROMEL OMER MD 07/11/15 Spironolactone* (Aldactone*) 25 Mg Tab, 25 MG PO DAILY, #30 TAB Prov:ROMEL OMER MD 07/11/15 Reported Medications Metoprolol Tartrate* (Lopressor*) 50 Mg Tab, 100 MG PO DAILY, #60 TAB 10/19/16 Omeprazole* (Omeprazole*) 20 Mg Capsule.dr, 20 MG PO DAILY, #30 CAP 10/18/16 Anagrelide Hcl* (Anagrelide Hcl*) 0.5 Mg Cap, 0.5 MG PO TID, #120 CAP 10/18/16 Vit C/E/Zn/Coppr/Lutein/Zeaxan (Preservision Areds 2 Softgel) 1 Each Capsule, 2 EACH PO BID, CAP 07/04/15 Furosemide* (Lasix*) 20 Mg Tablet, 20 MG PO DAILY, TAB 07/04/15 Omeprazole* (Omeprazole*) 20 Mg Capsule.dr, 20 MG PO DAILY, #30 CAP 07/04/15 Aspirin* (Aspirin* Chew) 81 Mg Tab.chew, 81 MG PO DAILY, TAB.CHEW 07/04/15 Raloxifene Hcl* (Evista*) 60 Mg Tablet, 60 MG PO DAILY, TAB 07/04/15 Atorvastatin Calcium* (Atorvastatin Calcium*) 20 Mg Tablet, 20 MG PO QHS, #30 TAB 07/04/15 Discontinued Scripts Levofloxacin* (Levaquin*) 500 Mg Tab, 500 MG PO DAILY@06 for 5 Days, TAB Prov:ROMEL OMER MD 07/12/15 Follow-up Plan Follow-up status post discharge in 1-2 weeks. Primary Care Provider MD REBECCA Paulino KERBY PA-C Oct 22, 2016 10:01
== END 2016-10-21 14:17 | DRG 914 ==
LOC: PP2 17:17
DX: S79.811A Other specified injuries of right hip, initial encounter (principal); D64.9 Anemia, unspecified; S70.11XA Contusion of right thigh, initial encounter; I10 Essential (primary) hypertension; E78.5 Hyperlipidemia, unspecified; D47.3 Essential (hemorrhagic) thrombocythemia; S89.81XA Other specified injuries of right lower leg, initial encounter; M25.551 Pain in right hip; M25.561 Pain in right knee; M81.0 Age-related osteoporosis without current pathological fracture; R26.2 Difficulty in walking, not elsewhere classified; R53.1 Weakness; W19.XXXA Unspecified fall, initial encounter; Y92.009 Unspecified place in unspecified non-institutional (private) residence as the place of occurrence of the external cause; Z74.09 Other reduced mobility; Z96.641 Presence of right artificial hip joint; Z96.651 Presence of right artificial knee joint
CPT/HCPCS: 73700; 80048; 85025; 97162

== ENCOUNTER → 2016-10-18 | Outpatient (CLI) | payer MEDICARE, BC ==
[~2016-10-18] MED LIST: AMLO5TAB4 PO; ASPI81TA3 PO; ATOR20TA38 PO; FURO-110 PO; LEVO500T72 PO; METO-429 PO; OMEP20CA16 PO; RALO60TA12 PO; SENN-25 PO; SPIR25TA PO; VIT1CAPS42 PO; ZOLP5TAB PO; [UNRECOGNIZED DRUG - CODE] PO
--- NOTE | 2016-10-18 15:07 | RADRPT ---
PROCEDURE: Right knee radiographs. CLINICAL INDICATION: Right knee pain. Postop. TECHNIQUE: Three views. Weight bearing. Frontal, lateral, and patellar view. COMPARISON: 11/02/2015. FINDINGS: The soft tissues are normal. 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 There is a kathi in the shaft of the femur with locking screws distally. There is a healed fracture of the supracondylar region of t he distal femur. There is no acute fracture or dislocation. There is no lytic or blastic lesion. There is no joint effusion. IMPRESSION: 1. Satisfactory postoperative appearance of the right knee. 2. Healed fracture of the supracondylar region of the right femur with a kathi and screws noted at th is site. RPTAT: QQ .Ramsey Melendez MD, Date Time Electronically viewed and signed by .Ramsey Melendez MD, on 10/18/2016 15:06 .R/
--- NOTE | 2016-10-18 15:08 | RADRPT ---
PROCEDURE: XR Right Femur. CLINICAL INDICATION: Right leg pain. TECHNIQUE: AP and lateral views of the right femur were performed. COMPARISON: 11/02/2015. FINDINGS: There is a right hip arthroplasty, a kathi in the shaft of the distal half of the femur with a single locking screw proximally and 3 locking screws distally. There is a total right knee arthroplasty. There is no acute fracture or dislocation. There is no lytic lesion. IMPRESSION: 1. Satisfactory postoperative appearance of the right femur. RPTAT: QQ .Ramsey Melendez MD, MD Date Time Electronically viewed and signed by .Ramsey Melendez MD, on 10/18/2016 15:07 .R/
--- NOTE | 2016-10-18 15:09 | RADRPT ---
PROCEDURE: XR Right hip and pelvis. CLINICAL INDICATION: Right hip pain. Pelvic pain. Postop. TECHNIQUE: Two views. Frontal pelvis and lateral right hip. COMPARISON: No prior studies are available for comparison. FINDINGS: There is no fracture or dislocation. The soft tissues are normal. There is a right hip arthroplasty which appears satisfactory. There are moderate degenerative changes of the left hip with joint space narrowing and osteophytes. There is no lytic or blastic lesion. The upper pelvis is not completely included on the image. IMPRESSION: 1. Satisfactory postoperative appearance of the right hip. 2. Moderate degenerative changes of the left hip. RPTAT: QQ .Ramsey Melendez MD, MD Date Time Electronically viewed and signed by .Ramsey Melendez MD, MD on 10/18/2016 15:09 .R/
--- NOTE | 2016-10-19 10:07 | HP ---
DATE OF ADMISSION: 10/18/2016 Clinic note MAIN COMPLAINT: Pain in the right leg following a fall. HISTORY OF MAIN COMPLAINT: Patient is an 86-year-old female who underwent a right total knee replacement on 10/15/2007. She subsequently underwent a left total hip replacement on 02/11/2007. On 07/04/2015, patient sustained a supracondylar fracture of the right femur, and an open reduction and internal fixation was performed. She has been doing fairly well since her last surgery. Patient has been able to get around with a walker. Three days ago she took a fall at home. She lives alone, and her son went over to her house. They called me for advice in the middle of the night. I recommended they go to the emergency room, but they were not able to accommodate the patient at the [facility] Emergency Room. The fall had occurred 2 days before they called me, so I recommended that she stay in bed and go through the emergency room the next day. I have not heard from them since that happened. The patient is now showing up at my office. Her son and daughter came along with her. They had an enormous amount of difficulty getting her to my office. CURRENT MEDICATIONS: 1. Toprol 5 mg twice a day. 2. Anagrelide 0.5 mg 3 times a day. 3. Lasix 20 mg twice a day. 4. Aldactazide 25 mg daily. 5. Lipitor 20 mg daily. 6. Norvasc 5 mg daily. 7. Arthrotec 75 mg a day. 8. Prolea q.6 months for osteoporosis. Dawt-hom-wfnsktz medications: 9. Magnesium. 10. Calcium. 11. Potassium. 12. Aspirin. 13. Naprosyn. 14. Prilosec. PHYSICAL EXAMINATION: The patient can barely walk. She has a rolling walker. She was not able to get on the examination couch, and I had to examine her on the x-ray table. VITAL SIGNS: Height 5 feet 5 inches, weight 150 pounds. Blood pressure 125/55, temperature 98.8. EXTREMITIES: The patient has marked ecchymosis down the entire left leg. The right knee is quite markedly stiff. No external sign of infection or inflammation. Extension is full. Flexion is to 95 degrees. Pain on forced flexion. RIGHT HIP: Excellent range of motion with pain at the limits of motion. Marked ecchymosis of the right thigh. IMAGING: Plain x-rays of the right hip obtained today show a hip replacement prosthesis. All components are well aligned and are still well attached to the bone. No evidence of or loosening. Imaging of the right knee obtained today shows all placement components to be well attached to the bone, except possibly at the [place] Hip and Knee [place] show the femoral component to be well attached to the bone. The former fracture is healed. Screws of internal fixation are noted. The tibial component seemed to show an angulation and possibly loosening on one side of the tibial plateau. The patellar component appears to be satisfactory. DISCUSSION: The patient is an 86-year-old female who lives alone. She has had multiple, previous joint replacement surgeries. She fell at home 3 days ago. She was unable to bring herself to the nearest hospital to my office. Her family brought her here today by car. She can barely walk. The x-rays do not show any fractures, but there is possible loosening of the left tibial component. DIAGNOSES: 1. Severe, acute pain. 2. Disability. 3. 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 4. Hypertension. 5. Hypercholesterolemia. MANAGEMENT: The patient will be admitted directly to [facility]. She is not able to get around. A CT scan will be obtained of her right knee to determine if the tibial component is loose. She will be followed along medically by Dr Connelly; I called him and advised him of her admission. I just looked at her x-rays again. The tibial component may be loose so let us get a metal-suppression CT scan of the right knee tomorrow. Dictated By: John Mathews MD /juan/nick /Document#: [id number]
== END | disposition home or self-care (01) ==
LOC: HKI 14:06
DX: S89.91XA Unspecified injury of right lower leg, initial encounter (principal); W19.XXXA Unspecified fall, initial encounter; Y92.009 Unspecified place in unspecified non-institutional (private) residence as the place of occurrence of the external cause; Z96.651 Presence of right artificial knee joint; Z79.82 Long term (current) use of aspirin; I10 Essential (primary) hypertension; E78.00 Pure hypercholesterolemia, unspecified
CPT/HCPCS: 73502; 73552; 73562; G0463

== ENCOUNTER 2016-10-21 14:57 | Inpatient (IN) | END 2016-11-01 14:05 | disposition home health service (06) | DRG 949 | DX: S09.8XXD Other specified injuries of head, subsequent encounter (principal); N39.0 Urinary tract infection, site not specified; I10 Essential (primary) hypertension; S80.11XD Contusion of right lower leg, subsequent encounter; D47.3 Essential (hemorrhagic) thrombocythemia; M79.661 Pain in right lower leg; Z74.09 Other reduced mobility; Z91.81 History of falling; S70.12XD Contusion of left thigh, subsequent encounter; E78.5 Hyperlipidemia, unspecified; G47.00 Insomnia, unspecified; R51 Headache ==

== ENCOUNTER 2017-09-17 08:36 | Inpatient (IN) | END 2017-09-26 13:20 | disposition home health service (06) | DRG 377 ==

== ENCOUNTER 2017-10-31 02:52 | Inpatient (IN) | END 2017-11-03 17:28 | disposition home or self-care (01) | DRG 378 ==

== ENCOUNTER → 2018-08-21 | Outpatient (CLI) | payer MEDICARE, BC ==
[~2018-08-21] MED LIST changes: +ANAG0.5C PO; -ASPI81TA3 PO; -FURO-110 PO; -LEVO500T72 PO; +METO-429 PO; -RALO60TA12 PO; -SENN-25 PO; -SPIR25TA PO; -VIT1CAPS42 PO; -ZOLP5TAB PO; +iron PO; +lasix ORAL
--- NOTE | 2018-08-21 17:19 | CONS ---
Assessment/Plan Assessment/Plan Hospital Course (Demo Recall) 88-year-old female with multiple medical problems and right ASR hip presents today with lower back pain. I do not believe any of her symptoms are secondary to her right total hip arthroplasty. At this time I would continue to treat her lower back pain conservatively including physical therapy. Regards to her right total hip arthroplasty since it is [id number] and is an ASR I am recommending cobalt and chromium serum iron levels. This will be done to obtain a baseline. Currently there are no concerns for any issues with the implant as x-rays look good and the patient is not symptomatic. Begin physical therapy for lower back Follow-up PRN Consultation Date/Type/Reason Admit Date/Time Date of Consultation: August 21, 2018 Reason for Consultation Right hip/back pain Date/Time of Note DATE: 08/21/18 TIME: 17:07 Hx of Present Illness This is an 88-year-old female who presents to clinic today for pain in her right hip/back area. She had sudden onset of this pain last Saturday, 6 days ago. The pain has worsened. It ranges between 610/10. The pain is sharp and throbbing. The pain is located in her midline back and does radiate towards the outer part of her hip. She denies any previous significant back issues although has documented history of sciatica. The pain is worse when sitting for long peers of time. Getting up and walking with her cane or walker does significantly help her. Denies numbness and tingling. Patient has multiple medical problems. She is only able to walk 1 block secondary to shortness of breath. She has a complex surgical history including an ASR right hip and a right total knee arthroplasty status post periprosthetic fracture requiring intramedullary nail and fixation by Dr. Mathews in 2016. Patient denies fever, chills, shortness of breath at rest, chest pain, nausea/vomiting, constipation, diarrhea, numbness, and tingling. Past Medical History TIA hypertension Mitral regurgitation Osteoporosis History of GI bleed Hearing loss Home Meds Reported Medications [iron] No Conflict Check, 28 MG PO DAILY 10/31/17 [lasix] No Conflict Check, ORAL DAILY 10/31/17 Omeprazole* (Omeprazole*) 20 Mg Capsule., 20 MG PO BID, #60 CAP 10/31/17 Amlodipine Besylate* (Norvasc*) 5 Mg Tablet, 5 MG PO QHS, TAB 09/17/17 Anagrelide Hcl* (Anagrelide Hcl*) 0.5 Mg Cap, 1.5 MG PO QHS, #120 CAP 09/17/17 Metoprolol Tartrate* (Lopressor*) 50 Mg Tab, 150 MG PO QHS, #60 TAB 10/19/16 Atorvastatin Calcium* (Atorvastatin Calcium*) 20 Mg Tablet, 20 MG PO QHS, #30 TAB 07/04/15 Allergies: Coded Allergies: No Known Allergy (Unverified , 09/17/17) Past Surgical History Right hip ASR Right TKA Intramedullary nail for periprosthetic right total knee fracture Past Surgical Hx: other Family History Significant Family History: no pertinent family hx Social History Alcohol Use: none Smoking Status: Never smoker Drug Use: none Exam/Review of Systems Exam Vitals Weight: 150 pounds Height: 5 feet 5 inches Blood Pressure: 188/80 Exam General: Alert, oriented x3. No Acute Distress. Heart: Regular rate and rhythm. Lungs: No respiratory distress. No accessory muscle use. MUSCULOSKELETAL: Tenderness to palpation over the lower lumbar spine. There is significant paraspinal tenderness palpation worse on the right than left. Right lower Extremity: Full painless and fluid range of motion of the hip. Sensation intact to light touch in a sural, saphenous, deep peroneal, superficial peroneal, medial and lateral plantar nerve distribution. Motor is intact, patient able to dorsiflex and plantarflex ankle and extend and flex great toe. Dorsalis Pedis pulse +2, Brisk capillary refill. Compartments are soft. Rises from seated position without difficulty. Gait: Slow pace. Limp. Cane for gait aids. Imaging Imaging Xrays obtained in clinic today and personally reviewed by myself: AP pelvis and AP/Lat of the right hip demonstrate hip s/p TATYANA with hip reduced. Components in good position and alignment. No signs of wear, osteolysis, loosening, component failure, or fracture. No acute complications. Partially visualized intramedullary nail from knee periprosthetic fracture is visualized. No complications. RAFAT MARX MD August 21, 2018 17:19
--- NOTE | 2018-08-22 08:33 | RADRPT ---
PROCEDURE: XR right Hip. CLINICAL INDICATION: Hip pain. TECHNIQUE: AP and frog leg lateral views of the right hip were obtained. COMPARISON: 10/18/2016 FINDINGS: There are postsurgical changes of right hip arthroplasty. The hardware is intact and well aligned. In tramedullary nail and interlocking screws partially imaged in the right femoral diaphysis. There are severe degenerative changes of the left hip, progressed since the prior examination. The sacroiliac j oints are symmetric. Moderate degenerative changes are seen at the sacroiliac joints. The bones are d emineralized. Pelvic phleboliths are seen. IMPRESSION: 1. Postsurgical changes of total right hip arthroplasty, unchanged in alignment. No periprosthetic f racture or lucency is seen. 2. Severe degenerative changes of the left hip, progressed since 2017. RPTAT: HRF Physician Jennifer Date Time Electronically viewed and signed by Physician Jennifer on 08/22/2018 08:33 RF/
== END | disposition home or self-care (01) ==
LOC: HKI 14:46
PROVIDERS: ATTEND Orthopaedic Surgery Adult Reconstructive Orthopaedic Surgery
DX: M25.551 Pain in right hip (principal); M54.5 Low back pain; I10 Essential (primary) hypertension; I34.0 Nonrheumatic mitral (valve) insufficiency; Z86.73 Personal history of transient ischemic attack (TIA), and cerebral infarction without residual deficits
CPT/HCPCS: 73502; G0463